=== PATIENT | female | born 1970 | race Caucasian/White ===

== ENCOUNTER 2021-01-15 16:38 | Emergency (ER) | payer OTHER ==
[2021-01-15 18:15] LABS: BASOPHIL 0.8 % (0-2); HCT 42.5 % (37.0-47.0); HGB 14.2 g/dl (12.5-16.0); LYMPHOCYTE 29.9 % (15-48); MCHC 33.4 g/dL (32.0-36.0); MCV 86.9 fL (78.0-100.0); MONOCYTE 4.9 % (0-12); MPV 10.3 fL (6.0-9.5); NEUTROPHIL 60.1 % (41-80); NRBC 0; PLT 243 K/uL (150-400); RBC 4.89 M/uL (4.20-5.40); RDW 12.8 % (11.5-14.0)
[2021-01-15 18:40] LABS: ALBUMIN 3.9 g/dL (3.4-5.0); BILIRUBIN - TOTAL 0.4 mg/dL (0.2-1.0); BUN/CREAT RATIO (CALC) 18.8 RATIO; CREATININE 0.85 mg/dL (0.51-0.95); GLOBULIN (CALCULATION) 3.7 g/dL; MAGNESIUM 2.2 mg/dL (1.8-2.4); POTASSIUM 3.7 mmol/L (3.5-5.1); TOTAL PROTEIN 7.6 g/dL (6.4-8.2)
[2021-01-15 19:35] LABS: CLARITY CLEAR (CLEAR); COLOR STRAW (YELLOW)
[2021-01-15 19:36] LABS: BILIRUBIN NEGATIVE (NEGATIVE); BLOOD NEGATIVE Ery/uL (NEGATIVE); GLUCOSE (U) NORMAL (NORMAL); LEUKOCYTES TRACE Leu/uL (NEGATIVE); NITRITE NEGATIVE (NEGATIVE); PROTEIN NEGATIVE (NEGATIVE); UROBILINOGEN 0.2 mg/dL (0.2-1.0)
[2021-01-15 19:38] LABS: SQUAMOUS EPITHELIAL CELLS RARE; URINARY WBC RARE
== END 2021-01-15 20:50 | disposition home or self-care (01) ==
LOC: FER 16:38
PROVIDERS: Nurse Practitioner Family
DX: S80.211A Abrasion, right knee, initial encounter (principal); E11.9 Type 2 diabetes mellitus without complications; I10 Essential (primary) hypertension; Z88.8 Allergy status to other drugs, medicaments and biological substances; W22.03XA Walked into furniture, initial encounter
CPT/HCPCS: 36415; 70450; 80053; 81001; 83735; 84484; 85025; 93005